=== PATIENT | female | born 1970 | race Caucasian/White ===

== ENCOUNTER → 2016-10-22 | Outpatient (CLI) | payer OTHER ==
[~2016-10-22] MED LIST: BACLOFEN10 MG PO; CELEBREX200 MG PO; CYMBALTA60 MG PO; GLUCOPHAGE500 M1 PO; GLUCOTROL10 MG PO; HYDROCODON-ACE1 EAC7 PO; IMITREX100 MG PO; JANUVIA100 MG PO; LAMICTAL100 MG PO; LANTUS 3 M100 UNITS/ SC; LANTUS 3 M100 UNITS1 SC; LIDODERM 5% P1 PATCH TD; LaMICtal PO; METFORMIN HCL500 MG PO; Metformin HCl PO; OMEPRAZOLE40 M1 PO; REGLAN10 MG PO; TIZANIDINE HCL4 M1 PO; TRAMADOL HCL50 MG PO; VALIUM5 MG PO; VITAMIN D1000 INTUN PO; VITAMIN D31000 UNI2 PO; Vicodin,Lortab 5/500 PO; WELCHOL625 MG PO; XANAX0.25 MG PO; ZANAFLEX4 MG PO; ZOLOFT100 MG PO; Zoloft PO
== END | disposition home or self-care (01) ==
LOC: AMB 12:34
DX: M48.02 Spinal stenosis, cervical region (principal); M54.12 Radiculopathy, cervical region; Z98.1 Arthrodesis status; M25.78 Osteophyte, vertebrae
CPT/HCPCS: 62302; 72125; 72126